=== PATIENT | male | born 1985 | race African-American/Black ===

== ENCOUNTER 2018-02-05 21:33 | Emergency (ER) | payer OTHER ==
[~2018-02-05] VITALS: Ht 182.9 cm; Wt 99.8 kg
--- NOTE | 2018-02-05 21:39 | NUR ---
PT BIBSELF C/O RIGHT THUMB LAC 8HRS AGO. TDAP UTD. 4CM LACERATION NOTED, NOT ACTVELY BLEEDING. PT STATES PAIN 4/10. PT IS AAOX4. PT REFUSED MEASUREMENTS OF DEPTH AND DID NOT ALLOW ANYONE TO TOUCH HIS LACERATED FINGER. VSS. NO S/S OF DISTRESS NOTED. RESP EVEN AND UNLABORED. PT SAFETY AND COMFORT MEASURES IN PLACE. AWAITING MD FOR EVAL.
[2018-02-05] MEDS ORDERED: LIDOCAINE 2% 20 ML MDV ONE (22:17)
[2018-02-05] MEDS ORDERED: CEFAZOLIN 1 GM ONE (22:18)
[2018-02-05] MEDS ORDERED: oxyCODONE/APAP (5/325 MG) 1 UDTAB TABLET ONE ×2 (22:18→23:27)
--- NOTE | 2018-02-05 22:24 | NUR ---
PER MD AHUJA, LIDOCAINE 2% AND NEOSPORIN PACKET PLACED BEDSIDE FOR WOUND CARE. MADE AWARE.
[2018-02-05] MEDS ORDERED: LIDOCAINE 2% 20 ML MDV TP ONE (22:30)
[2018-02-05] MEDS ORDERED: CEFAZOLIN 1 GM VIAL IM ONE (22:30)
[2018-02-05] MEDS ORDERED: BACI/NEOM/POLY B OINT PKT 1 UDPKT PACKET TP ONE (22:30)
[2018-02-05] MEDS ORDERED: oxyCODONE/APAP (5/325 MG) 1 UDTAB TABLET PO ONE ×2 (22:30→23:30)
[2018-02-05 23:32] VITALS: BP 134/80
--- NOTE | 2018-02-05 23:35 | NUR ---
Patient discharged to home in stable condition. Written and verbal after care instructions along with RX given. Patient verbalizes understanding of instruction. vss upon discharge. Pt ambulated with steady gait out of ER accompanied by girlfriend.
== END 2018-02-05 23:34 | disposition home or self-care (01) ==
LOC: ER 21:36 → EDBD 21:36 → ER 23:34
DX: S61.011A Laceration without foreign body of right thumb without damage to nail, initial encounter (principal); G89.29 Other chronic pain; V89.2XXA Person injured in unspecified motor-vehicle accident, traffic, initial encounter; Y93.89 Activity, other specified; Y92.89 Other specified places as the place of occurrence of the external cause; Y99.8 Other external cause status
CPT/HCPCS: 12001; 96372; 99284; A4606; A6402; J0690; J3490; Z7610

== ENCOUNTER 2018-02-13 20:29 | Emergency (ER) | payer OTHER ==
[~2018-02-13] VITALS: Ht 182.9 cm; Wt 102.1 kg
[2018-02-13 20:38] VITALS: BP 117/61
[2018-02-13] MEDS ORDERED: IBUPROFEN 400 MG TABLET ONE (21:00)
[2018-02-13] MEDS ORDERED: IBUPROFEN 400 MG TABLET PO ONE (21:00)
== END 2018-02-13 21:02 | disposition home or self-care (01) ==
LOC: ER 20:31
DX: S61.011D Laceration without foreign body of right thumb without damage to nail, subsequent encounter (principal); G89.29 Other chronic pain; W45.8XXD Other foreign body or object entering through skin, subsequent encounter
CPT/HCPCS: A4606; Z7610